=== PATIENT | female | born 1970 | race Two or more races ===

== ENCOUNTER → 2018-01-26 12:20 | Outpatient (CLI) | payer MEDICAID ==
[2015-10-14 06:40] VITALS: BMI 39.4
[~2018-01-26 12:20] MED LIST: GLIPIZIDE10 MG PO; GLUCOPHAGE500 MG PO; HYDROCODONE-APA1 TAB PO; TYLENOL W/CODEI1 TAB PO
== END | disposition home or self-care (01) ==
LOC: D.NM 12:20
DX: R10.9 Unspecified abdominal pain (principal)

== ENCOUNTER → 2018-11-07 13:13 | Outpatient (CLI) | payer MEDICAID ==
[2015-10-14 06:40] VITALS: BMI 39.4
[~2018-11-07 13:13] MED LIST changes: +ROBAXIN500 MG PO; +VOLTAREN75 MG PO; +XIGDUO XR 10 M1 EAC1 PO
== END | disposition home or self-care (01) ==
LOC: D.MRI 13:13
DX: M25.512 Pain in left shoulder (principal)

== ENCOUNTER 2018-11-13 09:38 | Emergency (ER) | payer MEDICAID ==
[~2018-11-13] VITALS: Ht 157.5 cm; Wt 95.5 kg
[~2018-11-13 09:38] MED LIST changes: -ROBAXIN500 MG PO; -VOLTAREN75 MG PO; -XIGDUO XR 10 M1 EAC1 PO
[2018-11-13 09:49] VITALS: Ht 157.5 cm; Wt 95.5 kg
[2018-11-13] MEDS ORDERED: XIGDUO XR 10 M1 EAC1 PO (09:53)
[2018-11-13] MEDS ORDERED: VOLTAREN75 MG PO (12:02)
[2018-11-13] MEDS ORDERED: ROBAXIN500 MG PO (12:02)
[2018-11-13 12:09] VITALS: BP 126/71
== END 2018-11-13 12:20 | disposition home or self-care (01) ==
LOC: D.ER 09:38
DX: M54.2 Cervicalgia (principal); M25.512 Pain in left shoulder; E11.9 Type 2 diabetes mellitus without complications; F17.200 Nicotine dependence, unspecified, uncomplicated

== ENCOUNTER → 2018-11-28 06:35 | Day surgery (SDC) | payer MEDICAID ==
[2018-11-25 16:43] LABS: HEMATOCRIT 37.5 % (36.0-48.0); HEMOGLOBIN 12.1 g/dL (12-16); MCH 27.2 pg (26.0-34.0); MCHC 32.3 g/dL (31.0-37.0); MCV 84.3 fL (80.0-100.0); MEAN PLATELET VOLUME 9.1 fL (7.4-10.4); RBC 4.45 10x6/uL (4.00-5.40); RDW 13.7 % (11.5-14.5); WBC 6.5 10x3/uL (4.8-10.8)
[2018-11-25 17:10] LABS: CALC OSMOLALITY 286 mosm/kg (275-300); CALCIUM 8.5 mg/dL (8.5-10.1); CARBON DIOXIDE 27.7 mmol/L (21.0-32.0); CHLORIDE - SERUM 105 mmol/L (98-107); CREATININE - SERUM 0.5 mg/dL (0.6-1.3); POTASSIUM - SERUM 3.8 mmol/L (3.5-5.1); SODIUM 141 mmol/L (136-145); UREA NITROGEN 17 mg/dL (7-18); eGFR NON AFRICAN AMERICAN > 90 mL/min (90-120)
[2018-11-25 17:11] LABS: GLUCOSE 171 mg/dL (74-106)
[~2018-11-28] VITALS: Ht 160 cm; Wt 95.3 kg
[~2018-11-28 06:35] MED LIST changes: +HYDROCODON-ACE1 EA10 PO; +OMEPRAZOLE40 MG PO; +ROBAXIN500 MG PO; +VOLTAREN75 MG PO; +XIGDUO XR 10 M1 EAC1 PO; +ZANAFLEX4 MG PO
[2018-11-28 06:54] VITALS: BP 122/75; Ht 160 cm; Wt 95.3 kg
--- NOTE | 2018-11-28 13:21 | OP ---
PATIENT NAME: FE GARCIA MEDICAL RECORD: [id number] :70 LOCATION:[facility] ADMISSION DATE: SURGEON: SILVIA ISIDRO MD DATE OF OPERATION: 11/28/2018 PREOPERATIVE DIAGNOSES: 1. Adhesive capsulitis of the left shoulder. 2. Biceps tendinitis of the left shoulder. 3. Impingement syndrome of the left shoulder. POSTOPERATIVE DIAGNOSES: 1. Adhesive capsulitis of the left shoulder. 2. Biceps tendinitis of the left shoulder. 3. Impingement syndrome of the left shoulder. PROCEDURES: 1. Arthroscopic biceps tenotomy. 2. Arthroscopic distal clavicle excision done through separate incision. 3. Arthroscopic subacromial decompression, acromioplasty, and bursectomy. 4. Manipulation of the left shoulder under anesthesia. SURGEON: Silvia Isidro MD COMMERCIAL DIVER: Andrea Ronquillo. INTRAOPERATIVE COMPLICATIONS: None. SUMMARY OF PATHOLOGIC FINDINGS: Consistent with the preoperative diagnosis, the patient had excellent release with manipulation. She also had severe biceps tendinitis along with mild labral tearing. She had excoriation of the coracoacromial ligament as well as acromioclavicular arthritis. OPERATIVE SUMMARY IN DETAIL: After obtaining the appropriate preoperative orthopedic surgery consent as well as anesthetic consultation, evaluation and clearance, the patient was brought to the operating room in the operating table in supine position. After adequate general laryngeal mask airway was administered, the patient was placed in right lateral decubitus position. All pressure points well padded to include down leg peroneal pad as well as axillary roll. The patient was held firmly to the operating table using the vacuum pack suction system. Left upper extremity and shoulder were then prepped and draped in routine sterile fashion. The arm was held in the Arthrex traction boom at 30 degrees of forward flexion, 30 degrees of abduction, 10 pounds of traction laterally. Arthroscopy was established in the glenohumeral joint from the posterior portal. Anterior portal was established from the anterior safe interval. Diagnostic arthroscopy revealed the above findings. After the patient had been manipulated prior to arthroscopy, the manipulation was carried out as such: The scapula was stabilized and manipulation was carried out and first abduction with good release followed by external rotation, internal rotation, as well as forward flexion. Again, as the scope was placed in the shoulder, substantial amounts of blood was noted. This was lavaged until good clear picture was noted. The patient had some labral tearing, severe biceps tendinitis led to a biceps tenotomy done with the [place] tissue ablation system. Attention was then turned to the subacromial space. While in the subacromial space, the [place] tissue system was utilized to release all the subacromial soft tissue as well as the coracoacromial ligament. A 5-0 barrel bur was then used OPERATIVE REPORT [id number] FE GARCIA to perform acromioplasty at the level of acromioclavicular joint. At this point, under direct arthroscopic visualization through arthroscopic portal anteriorly under direct arthroscopic visualization, distal clavicle was excised for 1 cm. Having completed this, attention was turned to the substantial amount of bursa on top of the rotator cuff. This was serially and sequentially removed with the arthroscopic resector both superiorly, anteriorly, laterally and posteriorly. No rotator cuff tearing was noted. Having completed this, arthroscopy portals were closed in routine interrupted fashion with 4-0 Prolene by Andrea Ronquillo. Sterile dressings were applied. The patient was awakened, taken to recovery room in stable condition. All final needle and sponge counts were correct. TRANSINT:[id number] Voice Confirmation ID: [id number] DOCUMENT ID: [id number] DWAINE BRANDT, SILVIA NEVES at 1321 CC: [id number] DICTATION DATE: 11/28/18 1006 PROCESS MACHINE OPERATOR: 11/28/18 1240 [facility] [address] [place] [address]
== END | disposition home or self-care (01) ==
LOC: D.OPS 06:35 → D.PAN 16:30
PROVIDERS: Anesthesiology; ATTEND Orthopaedic Surgery
DX: M75.22 Bicipital tendinitis, left shoulder (principal); M75.02 Adhesive capsulitis of left shoulder; M75.42 Impingement syndrome of left shoulder; Z01.812 Encounter for preprocedural laboratory examination

== ENCOUNTER → 2019-11-24 08:49 | Outpatient (CLI) | payer BC ==
[2018-11-28 06:54] VITALS: BMI 37.2
== END | disposition home or self-care (01) ==
LOC: D.NM 08:49
PROVIDERS: ATTEND Family Medicine
DX: R10.11 Right upper quadrant pain (principal)

== ENCOUNTER 2020-02-14 06:00 | Day surgery (SDC) | payer MEDICAID ==
[2020-02-12 15:08] LABS: HEMATOCRIT 41.5 % (36.0-48.0); HEMOGLOBIN 13.5 g/dL (12-16); MCH 28.4 pg (26.0-34.0); MCHC 32.5 g/dL (31.0-37.0); MCV 87.4 fL (80.0-100.0); RBC 4.75 10x6/uL (4.00-5.40); RDW 13.3 % (11.5-14.5); WBC 6.1 10x3/uL (4.8-10.8)
[2020-02-12 15:26] LABS: CALC OSMOLALITY 282 mosm/kg (275-300); CARBON DIOXIDE 29.2 mmol/L (21.0-32.0); CHLORIDE - SERUM 104 mmol/L (98-107); CREATININE - SERUM 0.7 mg/dL (0.6-1.3); GLUCOSE 224 mg/dL (74-106); POTASSIUM - SERUM 4.4 mmol/L (3.5-5.1); SODIUM 138 mmol/L (136-145); UREA NITROGEN 13 mg/dL (7-18); eGFR NON AFRICAN AMERICAN > 90 mL/min (90-120)
[~2020-02-14] VITALS: Ht 160 cm; Wt 95.0 kg
[~2020-02-14 06:00] MED LIST changes: +ADIPEX-P37.5 M1 PO; +GLIPIZIDE10 MG
[2020-02-14 06:37] VITALS: BP 99/58; BMI 37.1
[2020-02-14 07:03] VITALS: BP 107/67; Ht 160 cm; Wt 95.0 kg
[2020-02-14] MEDS ORDERED: HYDROCODON-ACE1 EAC7 PO (08:46)
--- NOTE | 2020-02-14 10:49 | NUR ---
1020-DISCHARGE CRITERIA MET. STERI STRIPS TO ABD CDI. PAIN 11/06.VSS. NO DISTRESS, NO N/V. REMOVED IV WITH CATH INTACT,DISPOSED INTO SHARPS,COVERED WITH GUAZE,SECURED WITH MEDIPORE TAPE. REVIEWED POST OPERATIVE INSTRUCTIONS,VERBALIZED UNDERSTANDING.
--- NOTE | 2020-02-14 10:51 | NUR ---
1030-PT DRESSED. ESCORTED OUT VIA W/C WITH SPOUSE AWAITING TO DRIVE HOME
== END 2020-02-14 10:30 | disposition home or self-care (01) ==
LOC: D.OPS 06:00 → D.PAN 08:00 → D.OPS 08:00
PROVIDERS: Anesthesiology; ATTEND Surgery
DX: K82.8 Other specified diseases of gallbladder (principal); R10.11 Right upper quadrant pain; E66.01 Morbid (severe) obesity due to excess calories; Z68.37 Body mass index [BMI] 37.0-37.9, adult; E11.40 Type 2 diabetes mellitus with diabetic neuropathy, unspecified; J45.909 Unspecified asthma, uncomplicated; Z72.0 Tobacco use